=== PATIENT | male | born 1995 | race Caucasian/White ===

== ENCOUNTER 2019-01-17 20:40 | Emergency (ER) | payer OTHER ==
[~2019-01-17] VITALS: Ht 175.3 cm; Wt 86.2 kg
[2019-01-17] MEDS ORDERED: Bactrim Ds Tab1 EACH PO (20:53)
== END 2019-01-17 21:00 | disposition home or self-care (01) ==
LOC: ER 20:40
DX: L02.413 Cutaneous abscess of right upper limb (principal); L03.113 Cellulitis of right upper limb
CPT/HCPCS: 99283

== ENCOUNTER 2019-03-15 02:15 | Emergency (ER) | payer OTHER ==
[~2019-03-15] VITALS: Ht 175.3 cm; Wt 81.7 kg
[~2019-03-15 02:15] MED LIST: Bactrim Ds Tab1 EACH PO
[2019-03-15] MEDS ORDERED: Cleocin HCl300 MG PO (04:51)
== END 2019-03-15 06:08 | disposition home or self-care (01) ==
LOC: ER 02:15
DX: L02.413 Cutaneous abscess of right upper limb (principal); F17.200 Nicotine dependence, unspecified, uncomplicated
CPT/HCPCS: 10060; 36415; 83605; 87040; 87070; 87075; 87077; 87147; 87186; 87205; 96374-59; 99283-25